=== PATIENT | female | born 1990 | race African-American/Black ===

== ENCOUNTER 2017-12-25 19:50 | Emergency (ER) | payer SELFPAY ==
[2017-12-25] MEDS: HYDROcodone/APAP 5/325MG 1 TAB TABLET PO (20:18)
== END 2017-12-25 20:35 | disposition home or self-care (01) ==
LOC: ER 19:50
DX: L03.011 Cellulitis of right finger (principal); Z91.040 Latex allergy status
CPT/HCPCS: 99283